=== PATIENT | male | born 1995 | race American Indian/Alaskan Native ===

== ENCOUNTER 2018-09-20 16:43 | Emergency (ER) | payer MEDICAID ==
--- NOTE | 2018-09-20 17:14 | Event Note ---
ED Screening Note ED Screening Note: yesterday playing football mother states he collided into another person had an episode of syncope yesterday no further episodes of syncope +nausea no vomiting no vision changes PMHx seizures and Cerebral palsy This initial assessment/diagnostic orders/clinical plan/treatment(s) is/are subject to change based on patients health status, clinical progression and re- assessment by fellow clinical providers in the ED. Further treatment and workup at subsequent clinical providers discretion. Patient/guardian urged not to elope from the ED as their condition may be serious if not clinically assessed and managed. Initial orders include: CT head
[2018-09-20 17:15] VITALS: BP 115/58
--- NOTE | 2018-09-20 21:03 | Cat Scan Report ---
CT HEAD WITHOUT CONTRAST INDICATION / CLINICAL INFORMATION: fall, head injury. Seizure. TECHNIQUE: All CT scans at this location are performed using CT dose reduction for ALARA by means of automated e xposure control. COMPARISON: None available. 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 This may be a seizur e focus. HEMORRHAGE: No evidence of intracranial hemorrhage or extra-axial fluid collection. EXTRA-AXIAL SPACES: Aside from the skin is in cephalic defect in the left frontal lobe, the cortical sulci, right sylvian fissure and basilar cisterns have an unremarkable appearance. VENTRICULAR SYSTEM: Enlargement of the lateral ventricles and absence of the septum pellucidum reflec ting congenital anomalies as described above. Third and fourth ventricles have a normal appearance. CEREBRAL PARENCHYMA: Loss of sulcation along portions along the lateral convex study of the left fron ana lobe suggests the possibility of polymicrogyria. No other areas of abnormal brain parenchymal att enuation are identified. MIDLINE SHIFT OR HERNIATION: There is no mass effect. CEREBELLUM / BRAINSTEM: Brainstem and cerebellum have an unremarkable appearance. INTRACRANIAL VESSELS:No abnormalities are identified on this noncontrast head CT. ORBITS: visualized portions of the orbits have an unremarkable appearance. SOFT TISSUES of HEAD: No significant abnormality. CALVARIUM: Evaluation of bone windows reveals no abnormalities. PARANASAL SINUSES / MASTOID AIR CELLS: Paranasal sinuses are free from inflammatory mucosal disease. Mastoid air cells are normally pneumatized. IMPRESSION: 1. 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 2. No acute intracranial abnormality. Signer Name: Anson Hollingsworth MD Signed: 09/20/2018 8:58 PM Workstation Name: [email or web address]
--- NOTE | 2018-09-20 21:26 | Emergency Department Report ---
ED Head Trauma HPI - General Chief complaint: Head Injury Stated complaint: HEAD INJURY Time Seen by Provider: 09/20/18 17:12 Source: patient Mode of arrival: Ambulatory Limitations: No Limitations - History of Present Illness Initial comments: Per mother, patient is a 22-year-old -[place] male with a history of cerebral palsy and chronic epileptic seizures and on medications who presents to the ED for evaluation after he collided with another individual when the patient is a 24 hours ago, and had a brief seizure episode with typical postictal symptoms. Mother states that the patient has also had intermittent nausea which has since resolved. Mother also states that the patient has mildly swollen left temporal area with no pain. Mother stated the patient has not had any vomiting, loss of consciousness, other than the typical postictal confusion after a seizure, lack of appetite, decreased physical activity, dizziness, change in vis ion, neck pain, back pain, chest pain, abdominal pain, hematuria or syncope. Mother states that she per the patient in the ED for evaluation to rule out any life-threatening injuries his pain. MD Complaint: head injury, other (chronic seizures) -: Sudden, hour(s) (24) Arrival Conditions: Negative: C-spine immobilization present, spinal board immobilization present Mechanism of Injury: sports related injury Location: temporal (left) Loss of Consciousness: no Previous Trauma to this Area: No Place: outdoors Radiation: none Severity: mild Severity scale (0 -10): 2 Quality: dull, aching Consistency: constant Provoking factors: none known, emotional stress, other (head injury during football) Other Injuries: none Context: recent alcohol use, other (On seizure medications) Associated Symptoms: denies other symptoms, nausea. denies: confusion, amnesia, repetitive questioning, vision changes, vomiting, vertigo, syncope, numbness, weakness, tingling, neck pain - Related Data Allergies/Adverse reactions: Allergies Allergy/AdvReac Type Severity Reaction Status Date / Time apple Allergy Swelling Verified 09/20/18 16:45 nystatin Allergy Swelling Verified 09/20/18 16:45 seafood Allergy Swelling Uncoded 09/20/18 16:45 ED Review of Systems ROS: Stated complaint: HEAD INJURY Other details as noted in HPI Constitutional: denies: chills, fever Eyes: denies: eye pain, eye discharge, vision change ENT: other (Mildly swollen nontender left temporal area). denies: ear pain, throat pain Respiratory: denies: cough, shortness of breath, wheezing Cardiovascular: denies: chest pain, palpitations Endocrine: no symptoms reported Gastrointestinal: nausea. denies: abdominal pain, diarrhea Genitourinary: denies: urgency, dysuria Musculoskeletal: denies: back pain, joint swelling, arthralgia Skin: denies: rash, lesions Neurological: other (seizure). denies: headache, weakness, paresthesias Psychiatric: denies: anxiety, depression Hematological/Lymphatic: denies: easy bleeding, easy bruising ED Past Medical Hx - Past Medical History Previous Medical History?: Yes Hx Seizures: Yes Additional medical history: cerebral palsy - Surgical History Past Surgical History?: Yes Additional Surgical History: heel, toe, hamstring - Social History Smoking Status: Never Smoker Substance Use Type: None ED Physical Exam - General Limitations: No Limitations General appearance: alert, in no apparent distress - Head Head exam: Present: atraumatic, normocephalic, normal inspection - Eye Eye exam: Present: normal appearance, PERRL, EOMI. Absent: scleral icterus, conjunctival injection, nystagmus, periorbital swelling, periorbital tenderness - ENT ENT exam: Present: normal exam, normal orophraynx, mucous membranes moist, TM's normal bilaterally, normal external ear exam - Neck Neck exam: Present: normal inspection, full ROM. Absent: tenderness - Respiratory Respiratory exam: Present: normal lung sounds bilaterally. Absent: respiratory distress, wheezes, rales, chest wall tenderness, accessory muscle use, decreased breath sounds, prolonged expiratory - Cardiovascular Cardiovascular Exam: Present: regular rate, normal rhythm, normal heart sounds. Absent: systolic murmur, diastolic murmur, rubs, gallop - GI/Abdominal GI/Abdominal exam: Present: soft, normal bowel sounds. Absent: distended, tenderness, guarding, hyperactive bowel sounds, organomegaly - Rectal Rectal exam: Present: deferred - Extremities Exam Extremities exam: Present: normal inspection, full ROM, normal capillary refill - Back Exam Back exam: Present: normal inspection, full ROM. Absent: tenderness, CVA tenderness (R), CVA tenderness (L), muscle spasm, paraspinal tenderness, vertebral tenderness - Neurological Exam Neurological exam: Present: alert, oriented X3, CN II-XII intact, normal gait, reflexes normal - Psychiatric Psychiatric exam: Present: normal affect, normal mood - Skin Skin exam: Present: warm, dry, intact, normal color. Absent: rash ED Course Vital Signs 09/20/18 17:12 Temperature 97.7 F Pulse Rate 73 Respiratory 18 Rate Blood Pressure 115/58 [Right] O2 Sat by Pulse 100 Oximetry - Reevaluation(s) Reevaluation #1: 09/20/18 21:43 Patient is alert and oriented 3 and is not in any distress, fully interactive during the physical exam. 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 There are no acute intracranial abnormalities or hemorrhage. On reevaluation, patient is resting comfortably sleeping on the bed and having conversation with his mother. Patient was discharged home and mother advised for the patient follow-up. Primary care physician in 3-5 days for reevaluation or return to the ED immediately if symptoms get worse. 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 There are no acute intracranial abnormalities or hemorrhage. - Medical Decision Making Patient is alert and oriented 3 and is not in any distress, fully interactive during the physical exam. 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 There are no acute intracranial abnormalities or hemorrhage. On reevaluation, patient is resting comfortably sleeping on the bed and having conversation with his mother. Patient was discharged home and mother advised for the patient follow-up. Primary care physician in 3-5 days for reevaluation or return to the ED immediately if symptoms get worse. - Differential Diagnosis Head injury; Subarachnoid hemorrhage; scalp contusion - Core Measures AMI Core Measures Followed: No Measure Exclusions: not indicated - NEXUS Criteria Focal neurological deficit present: No Midline spinal tenderness present: No Altered level of consciousness: No Intoxication present: No Distracting injury present: No NEXUS results: C-Spine can be cleared clinically by these results. Imaging is not required. Critical care attestation.: If time is entered above; I have spent that time in minutes in the direct care of this critically ill patient, excluding procedure time. ED Disposition Clinical Impression: Contusion of scalp, initial encounter, Epileptic seizure, generalized Head injury due to trauma Qualifiers: Encounter type: initial encounter Qualified Code(s): S09.90XA - Unspecified injury of head, initial encounter Disposition: TO HOME OR SELFCARE Is pt being admited?: No Does the pt Need Aspirin: No Condition: Stable Instructions: Scalp Contusion in Adults (ED), Recurrent Seizures Adult (ED) Additional Instructions: Taking your regular medications for seizures, and [id number] medications for pain as needed. Drink plenty of fluids and follow-up with your primary care physician in 3-5 days for reevaluation. Return to the ED immediately if symptoms get worse. Referrals: GARFIELD MICHELLE MD [Primary Care Provider] - 3-5 Days Time of Disposition: 21:34 Print Language: [place]
== END 2018-09-20 21:40 | disposition home or self-care (01) ==
LOC: ED 16:43
DX: S00.03XA Contusion of scalp, initial encounter (principal); G40.909 Epilepsy, unspecified, not intractable, without status epilepticus; G51.0 Bell's palsy; Z88.8 Allergy status to other drugs, medicaments and biological substances; Z91.013 Allergy to seafood; Z91.018 Allergy to other foods; X58.XXXA Exposure to other specified factors, initial encounter; Y93.89 Activity, other specified; Y92.89 Other specified places as the place of occurrence of the external cause; Y99.8 Other external cause status
CPT/HCPCS: 70450

== ENCOUNTER 2019-09-09 07:53 | Emergency (ER) | payer MEDICAID ==
--- NOTE | 2019-09-09 08:41 | Emergency Department Report ---
ED Seizure HPI - General Chief Complaint: Seizure Stated Complaint: SEIZURE Time Seen by Provider: 09/09/19 08:28 Source: EMS Mode of arrival: Stretcher Limitations: Other - History of Present Illness Initial Comments: Patient is 23 years old male with history of cerebral palsy and seizure. Patient brought to the emergency room via EMS for evaluation of generalized tonic-clonic seizure witnessed by his mother while patient sleeping. EMS stated that patient had another episode of seizure in route to the ER and patient received 5 mg of Versed. Upon arrival to the ER patient is alert but drowsy and able to answer questions. EMS stated that patient mother is in route to the hospital. Complaint: seizure - Related Data Home Medications Medication Instructions Recorded Confirmed Last Taken OXcarbazepine 300 mg PO DAILY 09/09/19 09/09/19 Unknown Allergies Allergy/AdvReac Type Severity Reaction Status Date / Time apple Allergy Swelling Verified 09/20/18 16:45 nystatin Allergy Swelling Verified 09/20/18 16:45 seafood Allergy Swelling Uncoded 09/20/18 16:45 ED Review of Systems ROS: Stated complaint: SEIZURE Other details as noted in HPI Comment: All other systems reviewed and negative Constitutional: denies: chills, fever Respiratory: denies: cough, shortness of breath, SOB with exertion Cardiovascular: denies: chest pain, palpitations Gastrointestinal: denies: abdominal pain, nausea, vomiting Neurological: denies: headache ED Past Medical Hx - Past Medical History Hx Seizures: Yes Additional medical history: cerebral palsy - Surgical History Additional Surgical History: heel, toe, hamstring - Social History Smoking Status: Never Smoker Substance Use Type: None - Medications Home Medications: Home Medications Medication Instructions Recorded Confirmed Last Taken Type OXcarbazepine 300 mg PO DAILY 09/09/19 09/09/19 Unknown History ED Physical Exam - General Limitations: Other General appearance: in no apparent distress, postictal - Head Head exam: Present: atraumatic, normocephalic, normal inspection - ENT ENT exam: Present: normal exam, normal orophraynx, mucous membranes moist - Neck Neck exam: Present: normal inspection, full ROM. Absent: tenderness, meningismus, lymphadenopathy, thyromegaly - Respiratory Respiratory exam: Present: normal lung sounds bilaterally - Cardiovascular Cardiovascular Exam: Present: regular rate, normal rhythm, normal heart sounds - GI/Abdominal GI/Abdominal exam: Present: soft, normal bowel sounds. Absent: distended, tenderness, guarding, rebound, rigid, organomegaly, mass, bruit, pulsatile mass, hernia - Extremities Exam Extremities exam: Present: normal inspection, full ROM, normal capillary refill. Absent: pedal edema, calf tenderness - Back Exam Back exam: Present: normal inspection, full ROM. Absent: CVA tenderness (R), CV A tenderness (L), muscle spasm, paraspinal tenderness, vertebral tenderness - Neurological Exam Neurological exam: Present: alert, CN II-XII intact. Absent: motor sensory deficit - Psychiatric Psychiatric exam: Present: normal mood - Skin Skin exam: Present: warm, intact, normal color ED Course Vital Signs 09/09/19 08:48 Temperature 98.5 F Pulse Rate 65 Respiratory 16 Rate Blood Pressure 108/53 [Left] O2 Sat by Pulse 98 Oximetry ED Medical Decision Making - Lab Data Result diagrams: 09/09/19 11:13 09/09/19 11:13 - Medical Decision Making Patient is 23 years old male with history of cerebral palsy and seizure. Patient brought to the emergency room via EMS for evaluation of generalized tonic-clonic seizure witnessed by his mother while patient sleeping. EMS stated that patient had another episode of seizure in route to the ER and patient received 5 mg of Versed. Upon arrival to the ER patient is alert but drowsy and able to answer questions. EMS stated that patient mother is in route to the hospital. Patient remained seizure-free in the ER. Patient given 1 dose of his Trileptal 300 mg in the ER. Labs reviewed and is unremarkable. I discussed with his mother to return to his previous dose and to follow-up with his neurologist in the next 2 to 3 days and to return to the ER if he develop any new symptoms. Critical care attestation.: If time is entered above; I have spent that time in minutes in the direct care of this critically ill patient, excluding procedure time. ED Disposition Clinical Impression: Seizure Disposition: DC-01 TO HOME OR SELFCARE Is pt being admited?: No Condition: Stable Instructions: Recurrent Seizures Adult (ED) Referrals: PRIMARY CARE, [Primary Care Provider] - 3-5 Days
[2019-09-09 08:49] VITALS: BP 108/53
[2019-09-09] MEDS ORDERED: OXcarbazepine 150 MG TAB PO ONE (09:01)
[2019-09-09 11:24] LABS: Bilirubin,Urine NEG (Negative); Blood,Urine SM (Negative); Color,Urine Yellow (Yellow); Protein,Urine <15 mg/dL mg/dL (Negative); Urobilinogen,Urine < 2.0 mg/dL (<2.0)
[2019-09-09 11:30] LABS: Basophils % (Auto) 0.5 % (0.0-1.8); Eosinophils # (Auto) 0.2 K/mm3 (0.0-0.4); Eosinophils % (Auto) 3.7 % (0.0-4.3); Hemoglobin 14.8 gm/dl (11.8-15.2); Lymphocytes # (Auto) 1.7 K/mm3 (1.2-5.4); Mean Corpuscular HGB Conc 33 % (32-34); Mean Corpuscular Volume 80 fl (84-94); Monocytes # (Auto) 0.5 K/mm3 (0.0-0.8); Monocytes % (Auto) 8.4 % (0.0-7.3); Platelet Count 207 K/mm3 (140-440); Red Blood Count 5.62 M/mm3 (3.65-5.03); Red Cell Distribution Width 14.2 % (13.2-15.2)
[2019-09-09 12:05] LABS: Alanine Aminotransferase 15 units/L (7-56); Albumin 5.2 g/dL (3.9-5); BUN/Creatinine Ratio 17; Bilirubin,Direct 0.2 mg/dL (0-0.2); Blood Urea Nitrogen 17 mg/dL (9-20); Calcium 10.2 mg/dL (8.4-10.2)
== END 2019-09-09 12:18 | disposition home or self-care (01) ==
LOC: ED 07:53
DX: G40.909 Epilepsy, unspecified, not intractable, without status epilepticus (principal); Z79.899 Other long term (current) drug therapy; Z91.013 Allergy to seafood; Z91.018 Allergy to other foods
CPT/HCPCS: 36415; 80048; 80076; 81001; 85025; 99283